=== PATIENT | male | born 2000 | race African-American/Black ===

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

== ENCOUNTER 2022-08-29 17:38 | Emergency (ER) | payer BC, MEDICAID ==
[2022-08-29] MEDS ORDERED: Ibuprofen 200 MG TAB ONE (20:41)
== END 2022-08-29 20:50 | disposition home or self-care (01) ==
LOC: ERS 17:38
DX: B34.9 Viral infection, unspecified (principal); M54.81 Occipital neuralgia; Z20.822 Contact with and (suspected) exposure to COVID-19
CPT/HCPCS: 99284; U0003; U0005

== ENCOUNTER 2022-12-23 07:00 | Emergency (ER) | payer BC, MEDICAID | END 2022-12-23 09:02 | disposition home or self-care (01) | LOC: ERS 07:00 | DX: S49.91XA Unspecified injury of right shoulder and upper arm, initial encounter (principal); Y93.B2 Activity, push-ups, pull-ups, sit-ups ==

== ENCOUNTER 2024-05-25 11:03 | Emergency (ER) | payer OTHER, SELFPAY ==
[2024-05-25] MEDS ORDERED: Ibuprofen 200 MG TAB ONE (12:17)
== END 2024-05-25 12:29 | disposition home or self-care (01) ==
LOC: ERS 11:03
DX: M25.512 Pain in left shoulder (principal); F90.9 Attention-deficit hyperactivity disorder, unspecified type; X50.0XXA Overexertion from strenuous movement or load, initial encounter; Y93.89 Activity, other specified; Z79.899 Other long term (current) drug therapy